=== PATIENT | male | born 1970 | race African-American/Black ===

== ENCOUNTER 2020-10-08 17:26 | Inpatient (IN) ==
[2020-10-08] MEDS ORDERED: NITROGLYCERIN DRIP 50 MG/250 ML BOTTLE IV PRN (17:54)
[2020-10-08] MEDS ORDERED: FUROSEMIDE 100 MG/10 ML VIAL IV STA (18:16)
[2020-10-08] MEDS ORDERED: PIPERACILLIN/TAZOBACTAM 3,375 MG in SODIUM CHLORIDE 0.9% 100 ML IV STA (18:16)
[2020-10-08] MEDS ORDERED: MORPHINE 4 MG/1 ML VIAL IV STA (18:16)
[2020-10-08] MEDS ORDERED: ONDANSETRON 4 MG/2 ML VIAL IV STA (18:16)
[2020-10-08] MEDS ORDERED: niCARdipine INJ 25 MG in SODIUM CHLORIDE 0.9% 240 ML IV PRN (18:40)
[2020-10-08] MEDS ORDERED: niCARdipine 25 MG/10 ML VIAL IV ONE (18:45)
[2020-10-08 18:54] LABS: Basophils # 0.1 10*3/uL (0.0-0.2); Basophils % 0.6 % (0.0-0.8); Eosinophils # 0.2 10*3/uL (0.0-0.87); Hematocrit 42.1 VOL% (42.0-52.0); Hemoglobin 12.9 GM/DL (14.0-18.0); Immature Granulocytes % 0.4 %; Immature Granulocytes Absolute 0.03 #; Lymphocytes # 3.3 10*3/uL (1.4-4.0); Lymphocytes % 38.6 % (21.2-54.2); Mean Corpuscular HGB Conc 30.6 GM/DL (32-36); Mean Corpuscular Volume 82.1 FL (87-102); Mean Platelet Volume 9.8 FL (9.6-12.0); NRBC # 0.03 10*3/uL; Neutrophils % 47.4 % (38.7-73.9); Platelet Count 207 T/CUMM (130-400); Red Blood Count 5.13 MC/CUMM (3.8-5.5); Red Cell Distribution Width 21.1 % (9.3-17.3); White Blood Count 8.6 T/CUMM (4-12)
[2020-10-08 19:03] LABS: INR 1.2; PT Patient Result 12.4 SECS (9.8-11.9)
[2020-10-08 19:20] LABS: Alanine Aminotransferase 23 U/L (16-61); Albumin 2.2 G/DL (3.4-5.0); Alkaline Phosphatase 126 U/L (45-117); Aspartate Amino Transferase 38 U/L (0-37); Blood Urea Nitrogen 45 MG/DL (7-18); Calcium 8.3 MG/DL (8.5-10.1); Carbon Dioxide 24 MMOL/L (21-32); Estimated Glom Filtration Rate 35 ML/MIN; Glucose 81 MG/DL (74-106); Osmolality,Calculated 283.8 MOS/KG (273-304); Potassium 3.8 MMOL/L (3.5-5.1); Sodium 137 MMOL/L (136-145); Total Protein 6.3 G/DL (6.4-8.3)
[2020-10-08 19:24] LABS: Troponin I 0.183 NG/ML (0.00-0.045)
[2020-10-08] MEDS ORDERED: LABETALOL 20 MG/4 ML SYRINGE IV STA (22:56)
[2020-10-08] MEDS ORDERED: hydrALAZINE 20 MG/1 ML VIAL IV PRN (23:08)
[2020-10-08] MEDS ORDERED: ALBUTEROL/IPRATROPIUM 3 ML NEB RESP TX PRN (23:36)
[2020-10-08] MEDS ORDERED: GLUCAGON 1 MG VIAL IM PRN (23:36)
[2020-10-08] MEDS ORDERED: DEXTROSE 50% 25 GM/50 ML VIAL IV PRN (23:36)
[2020-10-08] MEDS ORDERED: ACETAMINOPHEN 325 MG TABLET PO PRN (23:36)
[2020-10-08] MEDS ORDERED: NICOTINE 21 MG/24 HR PATCH TRANSDERM PRN (23:36)
[2020-10-08] MEDS ORDERED: SIMETHICONE CHEW 125 MG TABLET PO PRN (23:36)
[2020-10-08] MEDS ORDERED: guaiFENesin/DM ER 600-30 MG TABLET PO PRN (23:36)
[2020-10-08] MEDS ORDERED: BISACODYL 5 MG TABLET PO PRN (23:36)
[2020-10-08] MEDS ORDERED: ONDANSETRON 4 MG/2 ML VIAL IV PRN (23:36)
[2020-10-09] MEDS: ENOXAPARIN 100 MG/ML SYRINGE SUBCUT SCH (01:39)
[2020-10-09] MEDS: CLINDAMYCIN INJ 600 MG in PREMIX 1 EACH IV SCH ×3 (01:59→17:35)
[2020-10-09 04:56] LABS: Basophils % 0.5 % (0.0-0.8); Eosinophils # 0.3 10*3/uL (0.0-0.87); Eosinophils % 3.8 % (0.00-10.9); Hematocrit 44.2 VOL% (42.0-52.0); Hemoglobin 13.4 GM/DL (14.0-18.0); Immature Granulocytes % 0.5 %; Immature Granulocytes Absolute 0.04 #; Lymphocytes % 33.9 % (21.2-54.2); Mean Corpuscular HGB Conc 30.3 GM/DL (32-36); Mean Corpuscular Volume 84.8 FL (87-102); Mean Platelet Volume 9.8 FL (9.6-12.0); Monocytes % 9.7 % (1.7-12.7); NRBC # 0.03 10*3/uL; Neutrophils % 51.6 % (38.7-73.9); Platelet Count 212 T/CUMM (130-400); Red Blood Count 5.21 MC/CUMM (3.8-5.5); Red Cell Distribution Width 21.5 % (9.3-17.3); White Blood Count 8.7 T/CUMM (4-12)
[2020-10-09 05:33] LABS: Calcium 8.5 MG/DL (8.5-10.1); Potassium 4.3 MMOL/L (3.5-5.1)
[2020-10-09 05:38] LABS: Albumin 2.1 G/DL (3.4-5.0); Bilirubin,Direct 2.34 MG/DL (0.0-0.20); Bilirubin,Indirect 1.1 MG/DL (0.0-1.0); Bilirubin,Total 3.4 MG/DL (0.2-1.0); Total Protein 6.4 G/DL (6.4-8.3)
[2020-10-09 06:13] LABS: Hepatitis B Core IgM Quant 0.12 Index; Hepatitis B Surface Ag Quant 0.22 Index; Hepatitis B Surface Ag Result Non-Reactive (NonReactive); Hepatitis C Virus Ab Quant 0.03 Index; Hepatitis C Virus Ab Result Non-Reactive (NonReactive)
[2020-10-09] MEDS: FUROSEMIDE 40 MG/4 ML VIAL IV SCH (09:06)
[2020-10-09 10:25] LABS: % Iron Saturation 10.1 % (18-50)
[2020-10-09] MEDS: carvediloL 12.5 MG TABLET PO SCH ×2 (10:44→21:37)
[2020-10-09] MEDS: PANTOPRAZOLE 40 MG TABLET PO SCH (10:55)
[2020-10-09] MEDS: hydrALAZINE 25 MG TABLET PO SCH ×2 (15:38→21:36)
[2020-10-09] MEDS: PHYTONADIONE 5 MG/5 ML ORAL.SYR PO SCH (17:54)
[2020-10-09 20:59] LABS: Bilirubin,Urine Negative (Negative); Blood, Urine Negative (Negative); Glucose,Urine (UA) Negative (Negative); Hyaline Casts,Urine 6 /LPF (0-3); Ketones,Urine Negative (Negative); Mucus,Urine Occasional /LPF (Occasional); Nitrite,Urine Negative (Negative); Protein,Urine 100 MG/DL; RBC,Urine 7 /HPF (0-4); Sperm,Urine Occasional /HPF (Negative); Squamous Epithelial Cell,Urine Occasional /HPF (0-10); Urine Appearance CLEAR (Clear); Urine Color Amber (Yellow); Urine Specific Gravity 1.013 (1.001-1.035); Urine Urobilinogen < 2.0 EU/DL (0.2-1.0); WBC,Urine 3 /HPF (0-6)
[2020-10-09] MEDS: ALBUMIN 25% 12.5 GM in PREMIX 1 EACH IV SCH (21:36)
[2020-10-09 21:45] LABS: Microalbum/Creat Ratio Random 1370.4 RATIO (0-30)
[2020-10-10] MEDS: ENOXAPARIN 100 MG/ML SYRINGE SUBCUT SCH ×2 (00:26→22:50)
[2020-10-10] MEDS: CLINDAMYCIN INJ 600 MG in PREMIX 1 EACH IV SCH ×3 (02:17→18:19)
[2020-10-10 05:11] LABS: Albumin 2.1 G/DL (3.4-5.0); Bilirubin,Total 2.6 MG/DL (0.2-1.0); Calcium 8.2 MG/DL (8.5-10.1); Ferritin 28.6 ng/ml (26-388); Osmolality,Calculated 284.2 MOS/KG (273-304)
[2020-10-10] MEDS: carvediloL 12.5 MG TABLET PO SCH ×2 (09:28→21:49)
[2020-10-10] MEDS: PANTOPRAZOLE 40 MG TABLET PO SCH (09:28)
[2020-10-10] MEDS: FUROSEMIDE 40 MG/4 ML VIAL IV SCH ×3 (09:28→16:58)
[2020-10-10] MEDS: hydrALAZINE 25 MG TABLET PO SCH ×3 (09:28→21:49)
[2020-10-10] MEDS: ISOSORBIDE MONONITRATE 30 MG TABLET PO SCH (09:28)
[2020-10-10] MEDS: ALBUMIN 25% 12.5 GM in PREMIX 1 EACH IV SCH ×2 (09:57→21:49)
[2020-10-10] MEDS: PHYTONADIONE 5 MG/5 ML ORAL.SYR PO SCH (15:14)
[2020-10-11] MEDS: CLINDAMYCIN INJ 600 MG in PREMIX 1 EACH IV SCH ×2 (02:54→09:39)
[2020-10-11 05:38] LABS: Albumin 2.3 G/DL (3.4-5.0); Potassium 3.8 MMOL/L (3.5-5.1)
[2020-10-11] MEDS ORDERED: FUROSEMIDE 40 MG/4 ML VIAL IV SCH (09:00)
[2020-10-11] MEDS: PHYTONADIONE 5 MG/5 ML ORAL.SYR PO SCH (09:38)
[2020-10-11] MEDS: ALBUMIN 25% 12.5 GM in PREMIX 1 EACH IV SCH ×2 (09:39→22:37)
[2020-10-11] MEDS: carvediloL 12.5 MG TABLET PO SCH ×2 (09:39→22:36)
[2020-10-11] MEDS: PANTOPRAZOLE 40 MG TABLET PO SCH (09:39)
[2020-10-11] MEDS: hydrALAZINE 25 MG TABLET PO SCH ×3 (09:39→22:36)
[2020-10-11] MEDS: ISOSORBIDE MONONITRATE 30 MG TABLET PO SCH (09:39)
[2020-10-11] MEDS: HEPARIN 5,000 UNIT/1 ML VIAL SUBCUT SCH ×2 (10:31→17:51)
[2020-10-11] MEDS ORDERED: FUROSEMIDE 40 MG/4 ML VIAL IV ONE (11:20)
[2020-10-11 11:29] LABS: Risk Ratio 2.83; VLDL CHOLESTEROL 13.8 MG/DL
[2020-10-11] MEDS ORDERED: CLINDAMYCIN 150 MG CAPSULE PO SCH (15:00)
[2020-10-11] MEDS: POTASSIUM CHLORIDE 10 MEQ TABLET PO SCH (22:35)
[2020-10-11] MEDS: diphenhydrAMINE CAP 25 MG CAPSULE PO PRN (22:35)
[2020-10-11] MEDS: ATORVASTATIN 40 MG TABLET PO SCH (22:36)
[2020-10-12] MEDS: HEPARIN 5,000 UNIT/1 ML VIAL SUBCUT SCH ×3 (02:17→18:26)
[2020-10-12 03:48] LABS: Basophils % 0.5 % (0.0-0.8); Eosinophils # 0.4 10*3/uL (0.0-0.87); Eosinophils % 5.2 % (0.00-10.9); Hemoglobin 12.3 GM/DL (14.0-18.0); Immature Granulocytes % 0.4 %; Immature Granulocytes Absolute 0.03 #; Lymphocytes # 2.9 10*3/uL (1.4-4.0); Lymphocytes % 36.1 % (21.2-54.2); Mean Corpuscular HGB Conc 32.4 GM/DL (32-36); Mean Corpuscular Volume 80.3 FL (87-102); Mean Platelet Volume 9.4 FL (9.6-12.0); Monocytes % 12.4 % (1.7-12.7); NRBC # 0.03 10*3/uL; Neutrophils % 45.4 % (38.7-73.9); Platelet Count 173 T/CUMM (130-400); Red Blood Count 4.73 MC/CUMM (3.8-5.5); Red Cell Distribution Width 21.2 % (9.3-17.3); White Blood Count 8.1 T/CUMM (4-12)
[2020-10-12 04:12] LABS: Albumin 2.4 G/DL (3.4-5.0); Bilirubin,Total 1.8 MG/DL (0.2-1.0); Calcium 8.4 MG/DL (8.5-10.1); Osmolality,Calculated 288.1 MOS/KG (273-304); Potassium 3.4 MMOL/L (3.5-5.1); Total Protein 6.1 G/DL (6.4-8.3)
[2020-10-12] MEDS: PANTOPRAZOLE 40 MG TABLET PO SCH (09:12)
[2020-10-12] MEDS: ISOSORBIDE MONONITRATE 30 MG TABLET PO SCH (09:12)
[2020-10-12] MEDS: ASPIRIN EC 81 MG TABLET PO SCH (09:12)
[2020-10-12] MEDS: hydrALAZINE 25 MG TABLET PO SCH ×3 (09:13→22:16)
[2020-10-12] MEDS: POTASSIUM CHLORIDE 10 MEQ TABLET PO SCH ×2 (09:13→22:16)
[2020-10-12] MEDS: carvediloL 12.5 MG TABLET PO SCH ×2 (09:13→22:16)
[2020-10-12] MEDS: ALBUMIN 25% 12.5 GM in PREMIX 1 EACH IV SCH (09:13)
[2020-10-12] MEDS: FUROSEMIDE 100 MG/10 ML VIAL IV SCH (10:18)
[2020-10-12] MEDS: ATORVASTATIN 40 MG TABLET PO SCH (22:16)
[2020-10-12] MEDS: diphenhydrAMINE CAP 25 MG CAPSULE PO PRN (22:17)
[2020-10-13] MEDS: HEPARIN 5,000 UNIT/1 ML VIAL SUBCUT SCH ×3 (03:06→17:48)
[2020-10-13 05:09] LABS: Calcium 8.2 MG/DL (8.5-10.1); Osmolality,Calculated 289.8 MOS/KG (273-304); Potassium 3.5 MMOL/L (3.5-5.1)
[2020-10-13] MEDS: POTASSIUM CHLORIDE 10 MEQ TABLET PO SCH ×2 (08:40→21:22)
[2020-10-13] MEDS: ASPIRIN EC 81 MG TABLET PO SCH (08:40)
[2020-10-13] MEDS: carvediloL 12.5 MG TABLET PO SCH ×2 (08:40→21:22)
[2020-10-13] MEDS: hydrALAZINE 25 MG TABLET PO SCH ×3 (08:40→21:22)
[2020-10-13] MEDS: PANTOPRAZOLE 40 MG TABLET PO SCH (08:40)
[2020-10-13] MEDS: ISOSORBIDE MONONITRATE 30 MG TABLET PO SCH (08:40)
[2020-10-13] MEDS: FUROSEMIDE 100 MG/10 ML VIAL IV SCH (08:42)
[2020-10-13] MEDS: metOLazone 5 MG TABLET PO SCH (11:07)
[2020-10-13] MEDS: FUROSEMIDE 80 MG TABLET PO SCH (15:29)
[2020-10-13] MEDS: ATORVASTATIN 40 MG TABLET PO SCH (21:22)
[2020-10-14] MEDS: HEPARIN 5,000 UNIT/1 ML VIAL SUBCUT SCH ×3 (04:13→17:53)
[2020-10-14] MEDS: diphenhydrAMINE CAP 25 MG CAPSULE PO PRN (04:21)
[2020-10-14 05:29] LABS: Calcium 8.7 MG/DL (8.5-10.1); Osmolality,Calculated 292.5 MOS/KG (273-304); Potassium 3.4 MMOL/L (3.5-5.1)
[2020-10-14 08:37] LABS: Basophils # 0.1 10*3/uL (0.0-0.2); Basophils % 0.6 % (0.0-0.8); Eosinophils # 0.5 10*3/uL (0.0-0.87); Eosinophils % 5.6 % (0.00-10.9); Hematocrit 41.5 VOL% (42.0-52.0); Hemoglobin 12.7 GM/DL (14.0-18.0); Immature Granulocytes % 0.2 %; Immature Granulocytes Absolute 0.02 #; Lymphocytes # 2.5 10*3/uL (1.4-4.0); Lymphocytes % 29.1 % (21.2-54.2); Mean Corpuscular HGB Conc 30.6 GM/DL (32-36); Mean Platelet Volume 10.2 FL (9.6-12.0); Monocytes % 11.3 % (1.7-12.7); Neutrophils % 53.2 % (38.7-73.9); Platelet Count 188 T/CUMM (130-400); Red Blood Count 5.06 MC/CUMM (3.8-5.5); Red Cell Distribution Width 21.6 % (9.3-17.3); White Blood Count 8.5 T/CUMM (4-12)
[2020-10-14] MEDS: ISOSORBIDE MONONITRATE 30 MG TABLET PO SCH (08:54)
[2020-10-14] MEDS: carvediloL 12.5 MG TABLET PO SCH ×2 (08:54→21:14)
[2020-10-14] MEDS: PANTOPRAZOLE 40 MG TABLET PO SCH (08:54)
[2020-10-14] MEDS: metOLazone 5 MG TABLET PO SCH (08:54)
[2020-10-14] MEDS: ASPIRIN EC 81 MG TABLET PO SCH (08:54)
[2020-10-14] MEDS: FUROSEMIDE 80 MG TABLET PO SCH ×2 (08:56→17:53)
[2020-10-14] MEDS: hydrALAZINE 25 MG TABLET PO SCH ×3 (08:56→21:14)
[2020-10-14] MEDS: POTASSIUM CHLORIDE 10 MEQ TABLET PO SCH ×2 (08:58→21:14)
[2020-10-14] MEDS ORDERED: POTASSIUM CHLORIDE 20 MEQ TABLET PO ONE (12:40)
[2020-10-14] MEDS ORDERED: ALBUMIN 25% 25 GM in PREMIX 1 EACH IV ONE (12:40)
[2020-10-14] MEDS: ATORVASTATIN 40 MG TABLET PO SCH (21:14)
[2020-10-15] MEDS: diphenhydrAMINE CAP 25 MG CAPSULE PO PRN (00:20)
[2020-10-15] MEDS: HEPARIN 5,000 UNIT/1 ML VIAL SUBCUT SCH ×3 (02:52→17:03)
[2020-10-15] MEDS: PANTOPRAZOLE 40 MG TABLET PO SCH (08:35)
[2020-10-15] MEDS: metOLazone 5 MG TABLET PO SCH (08:35)
[2020-10-15] MEDS: ISOSORBIDE MONONITRATE 30 MG TABLET PO SCH (08:35)
[2020-10-15] MEDS: FUROSEMIDE 80 MG TABLET PO SCH ×2 (08:35→15:44)
[2020-10-15] MEDS: hydrALAZINE 25 MG TABLET PO SCH ×3 (08:35→22:40)
[2020-10-15] MEDS: ASPIRIN EC 81 MG TABLET PO SCH (08:35)
[2020-10-15] MEDS: POTASSIUM CHLORIDE 10 MEQ TABLET PO SCH ×2 (08:35→22:40)
[2020-10-15] MEDS: carvediloL 12.5 MG TABLET PO SCH ×2 (08:35→22:40)
[2020-10-15 09:21] LABS: Calcium 8.9 MG/DL (8.5-10.1); Osmolality,Calculated 292.5 MOS/KG (273-304); Potassium 3.1 MMOL/L (3.5-5.1)
[2020-10-15] MEDS: POTASSIUM CHLORIDE 20 MEQ TABLET PO PRN ×4 (12:45→18:15)
[2020-10-15] MEDS: ATORVASTATIN 40 MG TABLET PO SCH (22:40)
[2020-10-16] MEDS: HEPARIN 5,000 UNIT/1 ML VIAL SUBCUT SCH ×3 (04:39→17:23)
[2020-10-16 05:34] LABS: Osmolality,Calculated 294.3 MOS/KG (273-304); Potassium 3.5 MMOL/L (3.5-5.1)
[2020-10-16] MEDS: PANTOPRAZOLE 40 MG TABLET PO SCH (09:24)
[2020-10-16] MEDS: metOLazone 5 MG TABLET PO SCH (09:24)
[2020-10-16] MEDS: carvediloL 12.5 MG TABLET PO SCH ×2 (09:24→20:25)
[2020-10-16] MEDS: hydrALAZINE 25 MG TABLET PO SCH ×3 (09:24→20:25)
[2020-10-16] MEDS: POTASSIUM CHLORIDE 20 MEQ TABLET PO PRN ×2 (09:24→10:47)
[2020-10-16] MEDS: POTASSIUM CHLORIDE 10 MEQ TABLET PO SCH ×2 (09:24→20:25)
[2020-10-16] MEDS: FUROSEMIDE 80 MG TABLET PO SCH ×2 (09:24→16:26)
[2020-10-16] MEDS: ISOSORBIDE MONONITRATE 30 MG TABLET PO SCH (09:24)
[2020-10-16] MEDS: ASPIRIN EC 81 MG TABLET PO SCH (09:24)
[2020-10-16] MEDS: ATORVASTATIN 40 MG TABLET PO SCH (20:25)
[2020-10-17] MEDS: HEPARIN 5,000 UNIT/1 ML VIAL SUBCUT SCH ×2 (04:55→11:39)
[2020-10-17 06:02] LABS: Osmolality,Calculated 287.5 MOS/KG (273-304); Potassium 3.7 MMOL/L (3.5-5.1)
[2020-10-17] MEDS: ISOSORBIDE MONONITRATE 30 MG TABLET PO SCH (08:55)
[2020-10-17] MEDS: FUROSEMIDE 80 MG TABLET PO SCH ×2 (08:57→15:38)
[2020-10-17] MEDS: ASPIRIN EC 81 MG TABLET PO SCH (08:58)
[2020-10-17] MEDS: PANTOPRAZOLE 40 MG TABLET PO SCH (08:58)
[2020-10-17] MEDS: metOLazone 5 MG TABLET PO SCH (08:58)
[2020-10-17] MEDS: carvediloL 12.5 MG TABLET PO SCH (08:59)
[2020-10-17] MEDS: hydrALAZINE 25 MG TABLET PO SCH ×2 (08:59→15:37)
[2020-10-17] MEDS: POTASSIUM CHLORIDE 10 MEQ TABLET PO SCH (09:00)
[2020-10-17] MEDS ORDERED: MULTIVITAMIN (CENTRUM) TABLET PO SCH (09:00)
[2020-10-17 16:41] VITALS: BP 116/82
== END 2020-10-17 17:50 | disposition home or self-care (01) | DRG 291 ==
LOC: N.EDINP 17:26 → N.ED 17:26 → N.TELES 10-09 00:15 → SUATTDRO 10-09 15:56 → N.TELES 10-12 19:17
PROVIDERS: ADMIT Internal Medicine; ATTEND Family Medicine